=== PATIENT | female | born 1950 | race Caucasian/White ===

== ENCOUNTER 2016-11-08 09:11 | Day surgery (SDC) | payer MEDICARE ==
[2016-11-03 15:05] VITALS: BMI 31.7
[~2016-11-08 09:11] MED LIST: DEXAMETHASONE SOD PHOSPHATE 10 MG/ML 1 ML VIAL IV ONE; HEPARIN SODIUM,PORCINE 5,000 UNIT/ML 1 ML VIAL SQ ONE; HYDROmorphone 1 MG/ML 1 ML SYRINGE IVP PRN; LACTATED RINGERS 1,000 ML IV SCH; LIDOCAINE 1% 20 ML VIAL (10MG/ML) FOR IV START INTRADERMA PRN; Pre Op ABX Message 1 EACH MISC MISCELLANE ONE; SCOPOLAMINE 1.5MG/72HR PATCH TRANSDERM ONE
[2016-11-08 09:34] VITALS: RESP 16; TEMP 98.5
[2016-11-08] MEDS ORDERED: fentaNYL (PF) 50 MCG/ML 2 ML AMP ONE (11:46)
[2016-11-08] MEDS ORDERED: PROPOFOL 10 MG/ML 20 ML VIAL IV ONE (11:46)
[2016-11-08] MEDS ORDERED: MIDAZOLAM 2 MG/2 ML VIAL ONE (11:46)
[2016-11-08] MEDS ORDERED: LIDOCAINE 1% INJ 10MG/ML (20 ML MDV) SQ ONE ×2 (11:57)
[2016-11-08] MEDS ORDERED: HEPARIN SODIUM,PORCINE 5,000 UNIT/ML 1 ML VIAL SQ ONE (12:21)
--- NOTE | 2016-11-08 12:24 | P.OP ---
Date of Procedure: 11/08/16 Preoperative Diagnosis: Cyst right upper back Postoperative Diagnosis: Same Anesthesia: MAC Surgeon: Gogo Shaikh Estimated Blood Loss (ml): 5 IV fluids (ml): 300 Pathology: other (cyst) Condition: stable Disposition: PACU Indications for Procedure: Enlarging cyst right upper back Operative Findings: Sebaceous cyst right upper back Description of Procedure: Patient was taken to the operating room and the area of the cystic area on the right upper back was prepped and draped in a sterile fashion. Percent lidocaine was used to anesthetize the area of concern. Wide excision was performed. The cyst was approximately 2 x 2 centimeters in size. Following removal of all the cavity was evaluated for hemostasis. This was obtained using electrocautery device. This was irrigated. The incision was then closed using mattress nylon sutures. Patient tolerated procedure in stable condition. A pressure dressing was applied.
--- NOTE | 2016-11-08 12:25 | P.DS ---
Providers Attending physician: Gogo Shaikh Primary care physician: Baljinder Ribera Plan - Discharge Summary Discharge Medication List ALPRAZolam [Xanax] 0.25 mg PO DIRECTED PRN 11/03/16 [History] Gluc/Kyle-MSM#1/C/Benitez/Dyllan/Bor [Glucosamine-Chondroitin Tablet] 1 each PO DAILY 11/03/16 [History] Levothyroxine Sodium [Synthroid] 150 mcg PO MOTUWETH 11/03/16 [History] Levothyroxine Sodium [Synthroid] 175 mcg PO SUFRSA 11/03/16 [History] Multivitamins, Thera [Multivitamin] 1 tab PO DAILY 11/03/16 [History] Follow up Appointment(s)/Referral(s): Gogo Shaikh MD [STAFF PHYSICIAN] - 1 Week Activity/Diet/Wound Care/Special Instructions: Do not drive today Discharge Disposition: HOME SELF-CARE
[2016-11-08 12:47] VITALS: BP 158/72; PULSE 71
== END 2016-11-08 13:44 | disposition home or self-care (01) ==
LOC: OR 09:11
PROVIDERS: ATTEND Surgery
DX: L72.0 Epidermal cyst (principal); E03.9 Hypothyroidism, unspecified; E66.9 Obesity, unspecified; E78.00 Pure hypercholesterolemia, unspecified; E65 Localized adiposity; Z68.31 Body mass index [BMI] 31.0-31.9, adult; Z87.891 Personal history of nicotine dependence; Z79.899 Other long term (current) drug therapy; Z88.8 Allergy status to other drugs, medicaments and biological substances; Z86.010 Personal history of colon polyps
CPT/HCPCS: 11404; 88304; J2250; J1644; J1100; J2001; J3010; J2704; 99152; 99153

== ENCOUNTER → 2019-10-27 | Outpatient (CLI) | payer MEDICARE ==
[2019-10-28 08:51] VITALS: BMI 31.3
== END | disposition home or self-care (01) ==
LOC: DBWHC3 12:36
PROVIDERS: ATTEND Family Medicine
DX: R73.09 Other abnormal glucose (principal)
CPT/HCPCS: 97802

== ENCOUNTER 2021-09-26 06:31 | Day surgery (SDC) | payer MEDICARE ==
[2021-09-22 09:58] VITALS: BMI 24.8
[~2021-09-26 06:31] MED LIST changes: +ACETAMINOPHEN TAB 500 MG TAB PO PRN; -DEXAMETHASONE SOD PHOSPHATE 10 MG/ML 1 ML VIAL IV ONE; +DEXAMETHASONE SOD PHOSPHATE 4 MG/ML 1 ML VIAL IV ONE; -HEPARIN SODIUM,PORCINE 5,000 UNIT/ML 1 ML VIAL SQ ONE; +HEPARIN SODIUM,PORCINE/PF 5,000 UNIT/0.5 ML SYRINGE SQ PRN; -HYDROmorphone 1 MG/ML 1 ML SYRINGE IVP PRN; -LIDOCAINE 1% 20 ML VIAL (10MG/ML) FOR IV START INTRADERMA PRN; +ONDANSETRON 4 MG/2 ML VIAL IVP ONE; -SCOPOLAMINE 1.5MG/72HR PATCH TRANSDERM ONE
[2021-09-26] MEDS ORDERED: HYDROmorphone 0.5 MG/0.5 ML SYRINGE IVP PRN (07:00)
[2021-09-26 07:19] VITALS: TEMP 98.4
[2021-09-26] MEDS ORDERED: LACTATED RINGERS 1,000 ML IV ONE (07:26)
[2021-09-26] MEDS ORDERED: HEPARIN SODIUM,PORCINE 5,000 UNIT/ML 1 ML VIAL SQ ONE (07:39)
[2021-09-26] MEDS ORDERED: DEXAMETHASONE SOD PHOSPHATE 4 MG/ML 1 ML VIAL IVP ONE (07:39)
[2021-09-26] MEDS ORDERED: ONDANSETRON 4 MG/2 ML VIAL IVP ONE (07:39)
[2021-09-26] MEDS ORDERED: ACETAMINOPHEN TAB 500 MG TAB PO ONE (07:39)
[2021-09-26] MEDS ORDERED: .fentaNYL (PF) 50 MCG/ML 2 ML AMP ONE (07:55)
[2021-09-26] MEDS ORDERED: PROPOFOL 10 MG/ML 20 ML VIAL IV ONE (07:55)
[2021-09-26] MEDS ORDERED: KETAMINE 10 MG/ML 20 ML VIAL ONE (07:55)
[2021-09-26] MEDS ORDERED: MIDAZOLAM 2 MG/2 ML VIAL ONE (07:55)
[2021-09-26] MEDS ORDERED: BUPIVACAINE (PF) 0.25% 30 ML VIAL SQ ONE (08:08)
--- NOTE | 2021-09-26 08:32 | P.GSHP ---
History of Present Illness H&P Date: 09/26/21 Chief Complaint: Skin lesion left axilla This is a 8-year-old female who presents today for excision of left axilla skin lesion. Patient has a benign-appearing epidermal inclusion cyst of the left axilla measuring approximately 1.5 cm diameter. Past Medical History Past Medical History: Atrial Fibrillation, Hypertension, Osteoarthritis (OA), Thyroid Disorder Additional Past Medical History / Comment(s): ENVIRONMENTAL ALLERGIES. History of Any Multi-Drug Resistant Organisms: None Reported Past Surgical History: Tubal Ligation Additional Past Surgical History / Comment(s): SCAR ON SCALP REMOVED (17 YRS OLD), DEVIATED SEPTUM REPAIR, AXILLARY LESION EXCISED, MARY CATARACT REMOVAL Past Anesthesia/Blood Transfusion Reactions: No Reported Reaction Smoking Status: Former smoker - Past Family History Mother Family Medical History: Coronary Artery Disease (CAD) Father Family Medical History: Coronary Artery Disease (CAD) Medications and Allergies Home Medications Medication Instructions Recorded Confirmed Type lisinopriL [Zestril] 10 mg PO HS 11/06/18 09/26/21 History Flecainide Acetate 50 mg PO BID 08/24/21 09/26/21 History Metoprolol Tartrate 25 mg PO BID 08/24/21 09/26/21 History Calcium/Magnesium/Zinc 1 each PO DAILY 09/22/21 09/26/21 History [Xzanwvj-Ejxiezmnx-Lcna Tablet] Levothyroxine Sodium [Synthroid] 137 mcg PO DAILY 09/22/21 09/26/21 History Multivitamins, Thera [Multivitamin 1 tab PO DAILY 09/22/21 09/26/21 History (formulary)] Rivaroxaban [Xarelto] 20 mg PO HS 09/22/21 09/26/21 History Allergies Allergy/AdvReac Type Severity Reaction Status Date / Time No Known Allergies Allergy Verified 09/26/21 07:29 Surgical - Exam Vital Signs Temp Pulse Resp BP Pulse Ox 98.4 F 56 L 16 172/70 97 09/26/21 07:17 09/26/21 07:17 09/26/21 07:17 09/26/21 07:17 09/26/21 07:17 - General well developed, well nourished, no distress - Eyes PERRL - ENT normal pinna - Neck no masses - Respiratory normal expansion - Cardiovascular Rhythm: regular - Abdomen Abdomen: soft, non tender - Integumentary 1.5 cm epidermal inclusion cyst of left axilla. Assessment and Plan Assessment: Epidermal inclusion cyst left axilla. We'll perform excision.
--- NOTE | 2021-09-26 08:36 | P.OP ---
Date of Procedure: 09/26/21 Preoperative Diagnosis: Epidermal inclusion cyst left axilla Postoperative Diagnosis: Epidural inclusion cyst 1.5 cm Sebaceous cyst left axilla 1 cm Procedure(s) Performed: Excision of epidermal inclusion cyst and sebaceous cyst left axilla Anesthesia: MAC Surgeon: Caleb Smith Estimated Blood Loss (ml): 3 Pathology: other (Epidermal inclusion cyst, sebaceous cyst) Condition: stable Disposition: PACU Description of Procedure: Patient's placed in the operative table in the supine position. She received IV sedation. Her left axilla was prepped. Sterile fashion. The left is all there was a 1.5 cm epidermal inclusion cyst more cephalad there was a smaller 1 cm sebaceous cyst. The areas were injected 1% local Xylocaine. The skin was incised over the epidermal inclusion cyst and then the abdomen was closed as was dissected free and sent to pathology. The skin was closed 3-0 nylon. The area the sebaceous cyst was incised. The sebaceous was then dissected free sent to pathology. The skin was closed with interrupted 3-0 nylon suture. Patient top she will she had sterile dressing applied. She was sent to recovery room in stable condition
[2021-09-26 09:11] VITALS: BP 131/68; PULSE 55; RESP 18
== END 2021-09-26 09:32 | disposition home or self-care (01) ==
LOC: OR 06:31
PROVIDERS: ATTEND Surgery
DX: L72.0 Epidermal cyst (principal); L72.3 Sebaceous cyst; I48.91 Unspecified atrial fibrillation; I10 Essential (primary) hypertension; M19.90 Unspecified osteoarthritis, unspecified site; Z87.891 Personal history of nicotine dependence
CPT/HCPCS: 11403; 88304; J2250; J1644; J1100; J2405; J3010; J2704